=== PATIENT | female | born 1930 | race Two or more races ===

== ENCOUNTER → 2017-05-16 | Outpatient (CLI) | payer MEDICARE | END | disposition home or self-care (01) | LOC: ECHO 10:11 | DX: I44.1 Atrioventricular block, second degree (principal); I35.1 Nonrheumatic aortic (valve) insufficiency; I49.9 Cardiac arrhythmia, unspecified | CPT/HCPCS: 93306 ==

== ENCOUNTER → 2017-06-01 | Outpatient (CLI) | payer MEDICARE ==
[2017-06-01] MEDS: REGADENOSON 0.4 MG/5 ML DISP.SYRIN. IV (08:45)
== END | disposition home or self-care (01) ==
LOC: NM 08:08
DX: I10 Essential (primary) hypertension (principal); J45.909 Unspecified asthma, uncomplicated; E11.9 Type 2 diabetes mellitus without complications; R06.09 Other forms of dyspnea
CPT/HCPCS: 78452; 93017; 96374; 96375; 96376; A9500; J2785

== ENCOUNTER 2017-12-15 06:06 | Outpatient (CLI) | payer MEDICARE ==
[~2017-12-15] VITALS: Ht 157.5 cm; Wt 81.6 kg
[2017-12-15] VITALS (16 sets, daily range): BP systolic 115–144; BP diastolic 47–89
[~2017-12-15 06:06] MED LIST: ACET325T9 PO; AMLO5TAB4 PO; ASPI-482 PO; CYCL1DRO EACHEYE; FAMO-63 PO; FERR47.57 PO; FLUT12AE IH; FLUT9.9S NS; HYDR-2762 PO; IBUP100O25 PO; KETO5DRO24 EACHEYE; LOSA1TAB12 PO; MULT1TAB52 PO; OPTIVE EACHEYE; PROAIR HFA8.5 GM IH
[2017-12-15] MEDS ORDERED: TRAM50TA PO (06:51)
[2017-12-15] MEDS ORDERED: LOSA100T7 PO (06:51)
[2017-12-15] MEDS ORDERED: ALLO100T PO (06:51)
[2017-12-15] MEDS ORDERED: TRIA15CR TP (06:51)
[2017-12-15] MEDS ORDERED: HYDR25TA9 PO (06:51)
[2017-12-15 07:12] LABS: HEMATOCRIT 35.1 % (36.0-47.0); HEMOGLOBIN 11.9 g/dL (12.0-15.5); RED BLOOD COUNT 3.83 x10^6/uL (3.50-5.40); RED CELL DISTRIBUTION WIDTH 15.7 % (11.5-14.5); WHITE BLOOD COUNT 7.9 x10^3/uL (4.0-11.0)
[2017-12-15 07:17] LABS: CALCIUM 9.4 mg/dL (8.5-10.1); CREATININE 1.6 mg/dL (0.6-1.0); GFR 30.5; POTASSIUM 3.7 mmol/L (3.5-5.1)
[2017-12-15] MEDS ORDERED: LIDOCAINE 1% PF 2 ML VIAL. ONE (07:24)
[2017-12-15] MEDS ORDERED: IODIXANOL 320 MG/ML 100 ML VIAL. ONE (07:24)
[2017-12-15 07:44] LABS: PROTHROMBIN TIME PATIENT 13.3 SEC (11.7-14.0)
[2017-12-15] MEDS ORDERED: VERAPAMIL 5 MG/2 ML VIAL. ONE (07:54)
[2017-12-15] MEDS ORDERED: fentaNYL PF VIAL 100 MCG/2 ML VIAL ONE (07:54)
[2017-12-15] MEDS ORDERED: NITROGLYCERIN 200 MCG/2 ML SYRINGE FOR CATH/VASC LAB. ONE (07:54)
[2017-12-15] MEDS ORDERED: MIDAZOLAM HCL/PF 2 MG/2 ML VIAL. ONE ×2 (07:54→10:16)
[2017-12-15] MEDS ORDERED: HEPARIN for IV BOLUS 10,000 UNIT/10 ML VIAL. ONE (07:54)
[2017-12-15] MEDS ORDERED: CONTRAST GIVEN. MC PRN (10:30)
[2017-12-15] MEDS: HEPARIN for IV BOLUS 10,000 UNIT/10 ML VIAL. IART ONE (10:30)
[2017-12-15] MEDS: IODIXANOL 320 MG/ML 100 ML VIAL. IART ONE (10:30)
[2017-12-15] MEDS: fentaNYL PF VIAL 100 MCG/2 ML VIAL IV ONE (10:33)
[2017-12-15] MEDS: NITROGLYCERIN 200 MCG/2 ML SYRINGE FOR CATH/VASC LAB. IART ONE (10:33)
[2017-12-15] MEDS: MIDAZOLAM HCL/PF 2 MG/2 ML VIAL. IV ONE (10:33)
[2017-12-15] MEDS: LIDOCAINE 1% PF 2 ML VIAL. INJ ONE (10:34)
[2017-12-15] MEDS: VERAPAMIL 5 MG/2 ML VIAL. IART ONE (10:34)
--- NOTE | 2017-12-15 10:47 | CARD ---
MR#: [id number] Date of Study: 12/15/2017 Ordering Physician: NIA DIAZ Referring Physician: NIA DIAZ Tech: Deisi Kiran RTR APPROVED REPORT Technologist: Deisi Kiran RTR Nurse: Rosalia Hernandez RN Procedure(s) performed: Left heart catheterization, selective coronary angiography and left ventricul ography via right transradial approach Moderate Sedation time: 30 minutes INDICATION The indication(s) include : Unstable angina. PROCEDURE NARRATIVE After explaining the risks, benefits and alternative options, informed consent was obtained from reed ent. Patient was brought to the cardiac Relay Technician and right wrist was prepped and draped in the usual fashion after confirming a positive modified Ketan's test. Arterial access was obtained in the righ t radial artery and a 6 Micronesian sheath was inserted. 6 Micronesian Fernando catheter was used to perform lucero ective angiography of the left and right coronary arteries. LVEDP and transaortic gradients were carol ured. Left ventriculography was not performed due to elevated creatinine. Patient tolerated the proce dure well. Hemostasis was achieved using TR band. There were no immediate complications. The follo wing findings were noted. FINDINGS 1. Hemodynamics: Left ventricular end-diastolic pressure of 15 mmHg. No pullback gradient across th e aortic valve. 2. Coronary angiography: a. The left main coronary artery arose from the left sinus of Valsalva, gave rise to the left anteri or descending and left circumflex arteries and did not show any significant stenosis. b. The left anterior descending artery did not show any significant stenosis. c. The left circumflex artery did not show any significant stenosis. d. The right coronary artery was a large and dominant vessel arising from the right sinus of Valsalv a that did not show any significant stenosis. Conclusion No significant coronary artery disease Signed by : Nia Daiz, Electronically Approved : 12/15/2017 10:47:05
--- NOTE | 2017-12-15 10:50 | PDOC ---
MODERATE SEDATION ASSESSMENT RISKS/ALTERNATIVES Risks/Alternatives Risks and alternatives of this type of sedation and procedure discussed with: RISK/ALTERNATIVES: Patient H & P ON CHART H & P H & P on chart and reviewed for co-morbid conditions and appropriate labs. H&P ON CHART: Yes STATUS PREG STATUS ASSESSED: N/A MEDS/ALLERGIES REVIEWED Meds/Allergies Reviewed Medications and Allergies including time and route of recently administered narcotics and sedatives. MEDS/ALLERGIES REVIEWED: Yes ASA RATING ASA RATING: II AIRWAY ASSESSMENT Airway Assessment Airway patency, oral function limitations, presence of caps, crowns, dentures, partials, and ability to extend neck assessed. AIRWAY ASSESSMENT: Yes MALLAMPATI SCORE MALLAMPATI SCORE: II PRE-SEDATION ASSESSMENT PRE-SEDATION ASSESSMENT: Yes NIA REDMOND MD Dec 15, 2017 10:50
[2017-12-15] MEDS ORDERED: NITROGLYCERIN SUBLINGUAL 0.4 MG BOTTLE OF 25. SL PRN (11:00)
[2017-12-15] MEDS ORDERED: IV 1/2 NORMAL SALINE 1,000 ML IV SCH (11:15)
== END 2017-12-15 14:15 | disposition home or self-care (01) ==
LOC: CCL 06:06
PROVIDERS: ATTEND Internal Medicine Cardiovascular Disease
DX: I20.0 Unstable angina (principal); Z88.6 Allergy status to analgesic agent; Z88.8 Allergy status to other drugs, medicaments and biological substances; Z88.7 Allergy status to serum and vaccine; Z79.01 Long term (current) use of anticoagulants; Z79.899 Other long term (current) drug therapy
CPT/HCPCS: 36415; 80048; 85027; 85610; 85730; 93458; 99152; 99153; C1769; C1892; J1644; J2250; J3010; J3490; Q9967

== ENCOUNTER → 2019-08-07 | Outpatient (CLI) | payer MEDICARE ==
[2017-12-15 14:03] VITALS: BP 133/61
[~2019-08-07] MED LIST changes: +ALBU2.5V8 IH; +ALLO100T PO; +HYDR-2145 PO; -HYDR-2762 PO; +HYDR-2765 PO; +LOSA100T14 PO; +MULT-445 PO; -MULT1TAB52 PO; -PROAIR HFA8.5 GM IH; +TRAM50TA PO; +TRIA15CR TP
--- NOTE | 2019-08-07 12:50 | RAD ---
PROCEDURE: HIP RIGHT 2 VIEW, ANKLE RIGHT 3V STUDY DATE: 08/07/2019 CLINICAL INDICATION / HISTORY: Reason: RIGHT HIP PAIN, NO KNOWN INJURY / Spl. Instructions: / History: . TECHNIQUE: Right ankle 3 views. COMPARISON: None FINDINGS: The ankle mortise is approximated, and the talar dome is unremarkable. The joint space widths are maintained. No fracture or dislocation is identified. No soft tissue swelling is appreciated. Small calcaneal spur IMPRESSION: Small calcaneal spur. Otherwise negative right ankle. PROCEDURE: HIP RIGHT 2 VIEW, ANKLE RIGHT 3V STUDY DATE: 08/07/2019 CLINICAL INDICATION / HISTORY: Reason: RIGHT HIP PAIN, NO KNOWN INJURY / Spl. Instructions: / History: . TECHNIQUE: 2 views of the right hip were obtained. COMPARISON: None FINDINGS: Right hip shows no hip dislocation or fracture. There are osteophytes on the femoral head and there is mild medial hip joint narrowing. No aggressive appearing osseous lesions. The soft tissues are unremarkable. IMPRESSION: Right hip degenerative changes. No fracture or dislocation. Electronically signed by: Gege Bailey MD (08/07/2019 12:47 PM) [id number]
== END ==
LOC: RAD 09:52
PROVIDERS: ATTEND Internal Medicine
DX: M77.31 Calcaneal spur, right foot (principal); M16.11 Unilateral primary osteoarthritis, right hip; M25.751 Osteophyte, right hip
CPT/HCPCS: 73502; 73610